=== PATIENT | male | born 1995 | race Caucasian/White ===

== ENCOUNTER 2018-04-21 07:18 | Emergency (ER) | payer OTHER ==
[~2018-04-21] VITALS: Ht 170.2 cm; Wt 65.8 kg
[2018-04-21] MEDS ORDERED: PNEU16DI2 (07:40)
[2018-04-21] MEDS ORDERED: FOCALIN10 MG (07:40)
[2018-04-21] MEDS ORDERED: TUSSI PRES-B L120 M1 PO (12:24)
[2018-04-21] MEDS ORDERED: ZITHROMAX500 MG PO (12:24)
== END 2018-04-21 12:46 | disposition home or self-care (01) ==
LOC: ER 07:18
DX: B34.9 Viral infection, unspecified (principal)